=== PATIENT | male | born 1955 | race Caucasian/White ===

== ENCOUNTER 2018-09-20 12:28 | Day surgery (SDC) | payer MEDICAID ==
[~2018-09-20] VITALS: Ht 177.8 cm; Wt 77.7 kg
[~2018-09-20 12:28] MED LIST: CLON-570 PO; GABA-531 PO; HYD25 PO; LIDOCAINE/PF 2% 5 ML VIAL INJ ONE; LISI-662 PO; PROPOFOL 1% 20 ML VIAL IVP ONE; TOPI25 PO
[2018-09-20] MEDS ORDERED: SODIUM CHLORIDE 0.9% 1,000 ML IV ONE ×2 (12:51→13:00)
== END 2018-09-20 15:40 | disposition home or self-care (01) ==
LOC: SURGERY 12:28
PROVIDERS: ATTEND Internal Medicine Gastroenterology
DX: K63.89 Other specified diseases of intestine (principal); K57.30 Diverticulosis of large intestine without perforation or abscess without bleeding; K58.0 Irritable bowel syndrome with diarrhea; B18.2 Chronic viral hepatitis C; I10 Essential (primary) hypertension; M19.90 Unspecified osteoarthritis, unspecified site; G89.29 Other chronic pain; F17.210 Nicotine dependence, cigarettes, uncomplicated; F11.11 Opioid abuse, in remission; F10.21 Alcohol dependence, in remission; Z96.643 Presence of artificial hip joint, bilateral; Z79.891 Long term (current) use of opiate analgesic; Z79.899 Other long term (current) drug therapy; Z98.890 Other specified postprocedural states; Z82.49 Family history of ischemic heart disease and other diseases of the circulatory system
CPT/HCPCS: 45380; 88305; C1769; J2704; J3490; J7030